=== PATIENT | female | born 1995 | race Caucasian/White ===

== ENCOUNTER 2017-02-06 12:26 | Outpatient (CLI) | payer MEDICAID ==
[~2017-02-06] VITALS: Ht 154.9 cm; Wt 78.6 kg
[2017-02-06 13:49] VITALS: Ht 154.9 cm; Wt 78.6 kg
[2017-02-06 13:50] VITALS: BP 109/58; PULSE 80; RESP 18
--- NOTE | 2017-02-06 15:57 | QN ---
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 G1 with an IUP at 22w 6d c/o decreased FM. No VB or leaking. PMHx: Large fibroid near the cervix. Migraines. PSHx: none. All: Sumatriptan. BP 109/58 T= 98.1 NST:baseline 140 bpm with accels to 155 bpm. No decels. No UC's. A: IUP at 22w 6d. Decreased movement. P: D/C home. F/U 02/[address] Chopra and 02/25 at her clinic. ALEXANDER LYONS MD February 06, 2017 15:57
--- NOTE | 2017-02-06 16:33 | TRIAGE ---
OB Triage Datetime Report Generated by CPN: 02/06/2017 16:32 Datetime: 02/06/2017 16:00 Stage of : OB Triage Datetime: 02/06/2017 15:35 EGA: 22.6 Datetime: 02/06/2017 14:00 Stage of : OB Triage Assessment Type: Triage Maternal Assessment Level of Consciousness: Fully Conscious DTR's/Clonus: DTRs 1+ Headache: Frontal (Annotations: 11/20) Blurred Vision: No Respiratory Effort: Unlabored Nausea/Vomiting: Denies RUQ Epigastric Pain: Denies Lower Extremities Edema: None Upper Extremities Edema: None Labor Evaluation Frequency: 0 Monitor Mode: External Resting Tone [place]: Relaxed Heart Rate FHR Baseline Rate: 150 Monitor Mode: External US FHR Baseline Changes: No Baseline Change Variability: Moderate 6-25 bpm Decelerations: None Comments: LOSS OF CONTACT (Annotations: EFM OFF FOR COMFORT) Pain Assessment Pain Scale: 7 Pain Presence: Constant Pain Type: Ache Pain Location: Abdomen; Back Pain Goal: 3 Pain Relief Measures: Comfort Measures Vaginal Exam Membrane Status: Intact Vaginal Bleeding: None Datetime: 02/06/2017 13:00 Labor Evaluation Frequency: 0 Monitor Mode: External Resting Tone [place]: Relaxed Heart Rate FHR Baseline Rate: 150 Monitor Mode: External US FHR Baseline Changes: No Baseline Change Variability: Moderate 6-25 bpm Decelerations: None Comments: APPROPRIATE FOR GA Pain Assessment Pain Scale: 7 Pain Presence: Constant Pain Type: Ache Pain Location: Abdomen; Back Pain Goal: 3 Pain Relief Measures: Comfort Measures Pain Assessment Comments: HEADACHE FRONTAL 11/20 Datetime: 02/06/2017 12:10 Time of Arrival: 02/06/2017 12:10 Arrived By: Ambulatory Arrived From: Home Chief Complaint: DECREASED FM Movement: Decreased Contractions: Denies/Absent Rupture of Membranes: Denies Vaginal Discharge: Denies Abdominal Trauma: Not Applicable Patient Complaints: Back Pain; Headache; Other Additional Patient Complaints: PT HAS CERVICAL? FIBROIDS AND WAS TOLD BY DR ENG THAT SHE WOULD HAVE TO HAVE A CAESAREAN DUE TO BLOCKAGE/ ADVISED TO GET ROBERTO OF HER F/U OF MONITORING OF FIBROIDS Time Provider Notified: 02/06/2017 13:00 Provider Notified: ELOY Initial Plan: EFM X2; CALL DR LYONS
== END 2017-02-06 16:30 | disposition home or self-care (01) ==
LOC: OBT 12:26 → L-D 12:26 → OBT 16:30
PROVIDERS: ATTEND Obstetrics & Gynecology
DX: O36.8120 Decreased fetal movements, second trimester, not applicable or unspecified (principal); Z3A.22 22 weeks gestation of pregnancy
CPT/HCPCS: G0463

== ENCOUNTER 2017-05-07 00:20 | Outpatient (CLI) | payer MEDICAID ==
[~2017-05-07] VITALS: Ht 154.9 cm; Wt 85.2 kg
[2017-05-07 00:58] VITALS: BP 126/78; PULSE 90; RESP 18
[2017-05-07] MEDS ORDERED: PRENAT PO (01:00)
--- NOTE | 2017-05-07 01:53 | RADRPT ---
PROCEDURE: US OB Limited for Estimated Weight. CLINICAL INDICATION: 21 years of age, female. Decreased movement TECHNIQUE: Multiple sonographic images of the pelvis were obtained. Transabdominal imaging only w as performed. The images were reviewed on a PACS workstation. Image quality: Satisfactory. COMPARISON: No prior studies are available for comparison. FINDINGS: [place] : Number of fetuses: 1 GENERAL EVALUATION: Cardiac activity: Present. FHR 150 bpm Presentation: Cephalic Placenta: Placenta site: Posterior. No evidence of placental previa. Placental grade 2 Cervix (transabdominal): Not evaluated GILBERTO: Not evaluated DATING: Clinical TASNEEM: June 06, 2017 EGA based on TASNEEM: 35 weeks 5 days BIOMETRY: BPD = 8.9 cm , 36 weeks 1 day HC = 31.6 cm , 35 weeks 3-day AC = 31.9 cm , 35 weeks 6 days FL = 7 cm , 35 weeks 5 days Composite sonographic age: 35 weeks 6 days plus or minus 3 weeks Estimated due date by ultrasound measurements: June 05, 2017 EFW 2765 grams, 52 percentile. ANATOMY: Not evaluated. IMPRESSION: 1. Single living fetus in cephalic presentation. 2. Clinical gestation age of 35 weeks 5 days and clinical TASNEEM June 06, 2017 are concordant with the composite sonographic age within 1 day. 3. Estimated weight is 2765 grams that is at the 52 percentile for gestational age. 4. Posterior grade 2 placenta. RPTAT: HCTS Physician Tobi Date Time Electronically viewed and signed by Physician Tobi on 05/07/2017 01:53 CS/
--- NOTE | 2017-05-07 01:57 | RADRPT ---
PROCEDURE: OB ultrasound for biophysical profile CLINICAL INDICATION: 21 years of age, female. Decreased movements TECHNIQUE: Multiple sonographic images of the pelvis were obtained. Transabdominal view of the gr avid uterus are available for review. The images were reviewed on a PACS workstation. COMPARISON: None available. FINDINGS: breathing movement = 2/2 tone = 2/2 motion = 2/2 Amniotic fluid = 2/2 GILBERTO = 9.2 cm Single live intrauterine in cephalic presentation. heart rate measures 137 bpm. Posterior placenta, grade 2. IMPRESSION: 1. Single living fetus in cephalic presentation. 2. Biophysical profile = 8/8. 3. Mild oligohydramnios with GILBERTO = 9.2 cm. This is between the 5th and 50th percentiles for gestati onal age of 35 weeks 5-days. 4. Posterior grade 2 placenta RPTAT: HCTS Physician Tobi Date Time Electronically viewed and signed by Physician Tobi on 05/07/2017 01:57 CS/
[2017-05-07 02:17] LABS: ADD UMIC NO; UR ASCORBIC ACID NEGATIVE (NEGATIVE); UR BILIRUBIN (Dip) NEGATIVE (NEGATIVE); UR BLOOD (Dip) NEGATIVE (NEGATIVE); UR CLARITY CLEAR (CLEAR); UR COLOR STRAW (YELLOW); UR GLUCOSE (Dip) NEGATIVE (NEGATIVE); UR KETONES (Dip) NEGATIVE (NEGATIVE); UR LEUKOCYTE ESTERASE (Dip) NEGATIVE Leu/ul (NEGATIVE); UR NITRITE (Dip) NEGATIVE (NEGATIVE); UR SPECIFIC GRAVITY (Dip) 1.006 (1.003-1.030); UR TOTAL PROTEIN (Dip) NEGATIVE (NEGATIVE); UR UROBILINOGEN (Dip) NEGATIVE (NEGATIVE)
[2017-05-07 04:43] LABS: CANNABINOIDS Negative (NEGATIVE)
[2017-05-07 04:45] LABS: BARBITURATES Negative (NEGATIVE); BENZODIAZEPINES Negative (NEGATIVE); COCAINE Negative (NEGATIVE); OPIATES Negative (NEGATIVE)
--- NOTE | 2017-05-07 04:51 | PN ---
Triage Information Date/Time May 07, 2017 Reason for visit: DFM Weeks of Gestation 35w 5d /Para 2/0 Diabetes: none Hypertention: none Additional information No bleeding or leaking. PMHx: migraines. PSHx: none. All: Imitrex. Objective Vital Signs Date Time Temp Pulse Resp B/P Pulse Ox O2 Delivery O2 Flow Rate FiO2 05/07/17 00:58 97.9 90 18 126/78 Room Air Heart Rate: 130's Heart Rate Comments With accels to 170 bpm. No decels. Contractions: None Exam Deferred. Results/Medications Results 24 hrs Laboratory Tests Test 05/07/17 00:20 Urine Color STRAW Urine Clarity CLEAR Urine pH 7.0 Urine Specific [place] 1.006 Urine Ketones NEGATIVE Urine Nitrite NEGATIVE Urine Bilirubin NEGATIVE Urine Urobilinogen NEGATIVE Urine Leukocyte Esterase NEGATIVE Urine Hemoglobin NEGATIVE Urine Glucose NEGATIVE Urine Total Protein NEGATIVE Urine Opiates Screen Negative Urine Barbiturates Negative Urine Amphetamines Screen Negative Urine Benzodiazepines Screen Negative Urine Cocaine Screen Negative Urine Cannabinoids Negative Imaging Results EFW 2765 grams. BPP 8/8. GILBERTO 9.2 cm. VTX. Disposition: Discharge Assessment/Plan A: IUP at 35w 5d. Decreased movement. P: BPP and GILBERTO wnl. EFW S=D. After p.o. hydration pt now feels the baby moving. D/C home with kick count instructions. ALEXANDER LYONS MD May 07, 2017 04:51
--- NOTE | 2017-05-07 05:03 | TRIAGE ---
OB Triage Datetime Report Generated by CPN: 05/07/2017 05:02 Datetime: 05/07/2017 02:20 Stage of : OB Triage Monitor Mode: External Pattern: Normal: <= 5 Contractions in 10 Minutes Resting Tone [place]: Relaxed Heart Rate FHR Baseline Rate: 140 Monitor Mode: External US FHR Baseline Changes: No Baseline Change Variability: Moderate 6-25 bpm Accelerations: 15X15 Decelerations: None Category: Category I Datetime: 05/07/2017 01:32 Stage of : OB Triage Monitor Mode: External Resting Tone [place]: Relaxed Heart Rate FHR Baseline Rate: 140 Monitor Mode: External US Variability: Moderate 6-25 bpm Accelerations: 15X15 Decelerations: None Category: Category I Pain Assessment Pain Scale: 0 Pain Presence: None/Denies Pain Type: N/A Datetime: 05/07/2017 00:56 Time of Arrival: 05/07/2017 00:20 EGA: 35.5 Arrived By: Ambulatory Arrived From: Home Chief Complaint: c/o dfm Movement: Decreased Contractions: Denies/Absent Rupture of Membranes: Denies Vaginal Discharge: Denies Recent Sexual Intercouse: Denies Abdominal Trauma: Not Applicable Patient Complaints: None Additional Patient Complaints: Pt states smokes marijuana, last time 1 month ago Time Provider Notified: 05/07/2017 01:30 Provider Notified: Dr Gardner Initial Plan: EFM Datetime: 05/07/2017 00:29 Stage of : OB Triage Maternal Assessment Level of Consciousness: Fully Conscious Headache: Denies Blurred Vision: No Respiratory Effort: Unlabored Nausea/Vomiting: Denies RUQ Epigastric Pain: Denies Facial Edema: None Labor Evaluation Frequency: placed Monitor Mode: External Resting Tone [place]: Relaxed Heart Rate FHR Baseline Rate: 160 Monitor Mode: External US Pain Assessment Pain Scale: 0 Pain Presence: None/Denies Pain Type: N/A Datetime: 02/06/2017 15:35 EGA: 22.6
== END 2017-05-07 04:44 | disposition home or self-care (01) ==
LOC: L-D 00:20 → OBT 00:20
PROVIDERS: ATTEND Obstetrics & Gynecology
DX: O36.8130 Decreased fetal movements, third trimester, not applicable or unspecified (principal); Z3A.35 35 weeks gestation of pregnancy
CPT/HCPCS: 76815; 76818; 80307; 81003; Z7500; G0463

== ENCOUNTER 2017-05-27 14:30 | Outpatient (CLI) | payer MEDICAID ==
[~2017-05-27] VITALS: Ht 154.9 cm; Wt 87.5 kg
[~2017-05-27 14:30] MED LIST: PRENAT PO
[2017-05-27] MEDS ORDERED: FERR236T PO (15:06)
[2017-05-27] MEDS ORDERED: FOL8 PO (15:06)
[2017-05-27 15:08] VITALS: BP 120/70; PULSE 77; RESP 18
--- NOTE | 2017-05-27 15:49 | RADRPT ---
PROCEDURE: US OB biophysical profile. CLINICAL INDICATION: decreased movements, labor TECHNIQUE: Multiple sonographic images of the pelvis were obtained. The images were reviewed on a PACS workstation. COMPARISON: US PELVIS 05/07/2017 FINDINGS: There is a single viable intrauterine gestation. Cardiac activity is present with 161 beats per min [place]. There is a vertex presentation. The placenta is fundal left lateral. There is no evidence of placental abruption. There is a normal amount of amniotic fluid with an GILBERTO = 13.3 cm. Biophysical profile: movement 2/2 tone 2/2. breathing 2/2 GILBERTO 2/2 Total 04/20 RPTAT: AA . IMPRESSION: Normal biophysical profile. . .Jori Salas MD, Date Time Electronically viewed and signed by .Jori Salas MD, MD on 05/27/2017 15:49 .S/
--- NOTE | 2017-05-27 15:49 | RADRPT ---
PROCEDURE: Obstetrical ultrasound. CLINICAL INDICATION: , evaluation. Pelvic pain. Hypertension TECHNIQUE: Transabdominal sonographic images of the uterus obtained after first trimester , greater than 14 weeks gestation. Single intrauterine gestation present. COMPARISON: 05/07/2017 FINDINGS: Single intrauterine gestation. There is a cephalic presentation. Measurements were made in order to determine age. The results are as follows: BPD = 38 weeks 5 day(s) HC = 38 weeks 3 day(s) AC = 39 weeks 5 day(s) FL = 39 weeks 2 day(s) GILBERTO = not measured. Heart rate = 129 beats per minute The placenta is posterior. There is no evidence for an abruption or placenta previa. Ovaries are not visualized. IMPRESSION: Single intrauterine gestation of approximately 39 weeks 0 days by ultrasound criteria. [place] estimated weight = 3761 g; 83 percentile for gestational age of 38 weeks 4 days. RPTAT: AADD .Alan Wilburn MD, Date Time Electronically viewed and signed by .Alan Wilburn MD, MD on 05/27/2017 15:49 .B/
[2017-05-27 15:50] LABS: BASOPHILS % 0.3 % (0.0-2.0); EOSINOPHILS # 0.1 10^3/ul (0.0-0.5); EOSINOPHILS % 1.2 % (0.0-7.0); HEMATOCRIT 34.4 % (37.0-47.0); HEMOGLOBIN 11.6 g/dl (12.0-16.0); LYMPHOCYTES % 17.8 % (15.0-51.0); MEAN CORPUSCULAR HEMOGLOBIN 28.5 pg (29.0-33.0); MEAN CORPUSCULAR HGB CONC 33.7 g/dl (32.0-37.0); MEAN CORPUSCULAR VOLUME 84.5 fl (82.0-101.0); MEAN PLATELET VOLUME 11.5 fl (7.4-10.4); MONOCYTE # 0.6 10^3/ul (0.3-0.9); NEUTROPHIL # 8.4 10^3/ul (1.6-7.5); NEUTROPHILS % 75.2 % (39.0-77.0); PLATELET COUNT 205 10^3/UL (140-415); RED BLOOD COUNT 4.07 10^6/ul (4.20-5.40); RED CELL DISTRIBUTION WIDTH 13.8 % (11.5-14.5); WHITE BLOOD COUNT 11.1 10^3/ul (4.8-10.8)
[2017-05-27 16:20] LABS: INR 0.94; PROTIME 12.6 Sec (12.2-14.2)
[2017-05-27 16:21] LABS: PARTIAL THROMBOPLASTIN TIME 23.8 Sec (25.0-35.0)
[2017-05-27 16:22] LABS: ALBUMIN 3.2 g/dl (3.3-4.9); ALBUMIN/GLOBULIN RATIO 1.14; BILIRUBIN,INDIRECT 0.2 mg/dl (0-1.1); BILIRUBIN,TOTAL 0.2 mg/dl (0.2-1.3); CALCIUM 9.2 mg/dl (8.4-10.2); CREATININE 0.5 mg/dl (0.44-1.00); POTASSIUM 3.9 mmol/L (3.5-5.1); URIC ACID 3.9 mg/dl (3.1-7.9)
[2017-05-27 16:37] LABS: ADD UMIC NO; UR ASCORBIC ACID NEGATIVE (NEGATIVE); UR BILIRUBIN (Dip) NEGATIVE (NEGATIVE); UR BLOOD (Dip) NEGATIVE (NEGATIVE); UR CLARITY CLEAR (CLEAR); UR COLOR YELLOW (YELLOW); UR GLUCOSE (Dip) NEGATIVE (NEGATIVE); UR KETONES (Dip) NEGATIVE (NEGATIVE); UR LEUKOCYTE ESTERASE (Dip) NEGATIVE Leu/ul (NEGATIVE); UR NITRITE (Dip) NEGATIVE (NEGATIVE); UR SPECIFIC GRAVITY (Dip) 1.012 (1.003-1.030); UR TOTAL PROTEIN (Dip) NEGATIVE (NEGATIVE); UR UROBILINOGEN (Dip) 1+ mg/dL (NEGATIVE)
--- NOTE | 2017-05-27 18:40 | QN ---
Documentation Comment iup 38 weeks with some blurred vision vss exam wnl labs wnl ua neg a/p iup 38 weeks false labor dc home CHANTELL STERN MD May 27, 2017 18:40
--- NOTE | 2017-05-27 19:07 | TRIAGE ---
OB Triage Datetime Report Generated by CPN: 05/27/2017 19:07 Datetime: 05/27/2017 17:52 Labor Evaluation Frequency: 0 Monitor Mode: External Pattern: Normal: <= 5 Contractions in 10 Minutes Resting Tone [place]: Relaxed Heart Rate FHR Baseline Rate: 135 Monitor Mode: External US FHR Baseline Changes: No Baseline Change Variability: Moderate 6-25 bpm Accelerations: 15X15 Decelerations: None Datetime: 05/27/2017 17:00 Labor Evaluation Frequency: 0 Monitor Mode: External Pattern: Normal: <= 5 Contractions in 10 Minutes Resting Tone [place]: Relaxed Heart Rate FHR Baseline Rate: 130 Monitor Mode: External US FHR Baseline Changes: No Baseline Change Variability: Moderate 6-25 bpm Accelerations: 15X15 Decelerations: Variable Datetime: 05/27/2017 16:00 Labor Evaluation Frequency: 0 Monitor Mode: External Pattern: Normal: <= 5 Contractions in 10 Minutes Resting Tone [place]: Relaxed Heart Rate FHR Baseline Rate: 135 Monitor Mode: External US FHR Baseline Changes: No Baseline Change Variability: Moderate 6-25 bpm Accelerations: 15X15 Decelerations: Variable Datetime: 05/27/2017 15:12 Stage of : OB Triage Assessment Type: Triage Maternal Assessment Level of Consciousness: Fully Conscious Headache: Denies Blurred Vision: No Respiratory Effort: Unlabored; Regular Rhythm; Equal Expansion Breath Sounds, Left: Clear and Equal Breath Sounds, Right: Clear and Equal Nausea/Vomiting: Denies RUQ Epigastric Pain: Denies Lower Extremities Edema: None Degree: None Upper Extremities Edema: None Degree: None Facial Edema: None Temperature Route: Oral Fall Risk Assessment History of Falling: (0) No Secondary Diagnosis: (0) No Ambulatory Aid: (0) Bedrest/Nurse Assist IV Therapy: (0) No Gait: (0) Normal/Bedrest/Immobile Mental Status: (0) Oriented to Own Ability Fall Score: 0 Fall Risk Score Definition: No Risk: No action required Pain Assessment Pain Scale: 0 Pain Presence: None/Denies Pain Type: N/A Datetime: 05/27/2017 15:10 Time of Arrival: 05/27/2017 14:20 EGA: 38.4 Arrived By: Ambulatory Arrived From: Dr. Nicole Chief Complaint: ELEV BP, BLURRY VISION A COUPLE OF TIMES FOR A FEW SECONDS (BUT NONE TODAY); VAGI NAL SPOTTING YESTERDAY BETWEEN [phone] (PT REPORTS SEXUAL INTERCOURSE IN THE EVENING OF 05/25) Movement: Present Contractions: Occasional Rupture of Membranes: Denies Vaginal Bleeding: None Vaginal Discharge: Denies Recent Sexual Intercouse: Denies Abdominal Trauma: Not Applicable Patient Complaints: Other Time Provider Notified: 05/27/2017 15:19 Provider Notified: DR. ISRAEL Initial Plan: EFM x2, BP MONITORING, BPP, EFW, PIH PANEL Datetime: 05/07/2017 04:40 Stage of : OB Triage Datetime: 05/07/2017 04:12 Stage of : OB Triage Datetime: 05/07/2017 03:37 Comments: EFM off. Pt sleeping Datetime: 05/07/2017 03:26 Heart Rate FHR Baseline Rate: 135 Monitor Mode: External US FHR Baseline Changes: No Baseline Change Variability: Moderate 6-25 bpm Accelerations: 15X15 Decelerations: None Category: Category I Pain Assessment Pain Scale: 0 Pain Presence: None/Denies Datetime: 05/07/2017 00:56 EGA: 35.5 Datetime: 02/06/2017 15:35 EGA: 22.6
== END 2017-05-27 18:30 | disposition home or self-care (01) ==
LOC: L-D 14:30 → OBT 14:30
PROVIDERS: ATTEND Obstetrics & Gynecology
DX: O47.1 False labor at or after 37 completed weeks of gestation (principal); O26.893 Other specified pregnancy related conditions, third trimester; H53.8 Other visual disturbances; Z3A.38 38 weeks gestation of pregnancy
CPT/HCPCS: 76815; 76818; 80053; 81003; 84560; 85025; 85384; 85610; 85730; Z7500; G0463

== ENCOUNTER 2017-05-30 15:45 | Inpatient (IN) | payer MEDICAID ==
[~2017-05-30] VITALS: Ht 154.9 cm; Wt 86.5 kg
[~2017-05-30 15:45] MED LIST changes: +BEN25 PO; +FERR236T PO; +FOL8 PO; +HYDR-3011 PO; +PRED20TA PO
[2017-05-30 15:52] VITALS: BP 132/74; PULSE 97; RESP 19; Ht 154.9 cm; Wt 86.5 kg
--- NOTE | 2017-05-30 16:06 | TRIAGE ---
OB Triage Datetime Report Generated by CPN: 05/30/2017 16:06 Datetime: 05/30/2017 15:51 Assessment Type: Triage Maternal Assessment Level of Consciousness: Fully Conscious DTR's/Clonus: DTRs 2+; No Clonus Headache: Denies Blurred Vision: No Respiratory Effort: Unlabored; Regular Rhythm; Equal Expansion Breath Sounds, Left: Clear and Equal Breath Sounds, Right: Clear and Equal Nausea/Vomiting: Denies RUQ Epigastric Pain: Denies Lower Extremities Edema: None Degree: None Upper Extremities Edema: None Degree: None Facial Edema: None Fall Risk Assessment History of Falling: (0) No Secondary Diagnosis: (0) No Ambulatory Aid: (0) Bedrest/Nurse Assist IV Therapy: (0) No Gait: (0) Normal/Bedrest/Immobile Mental Status: (0) Oriented to Own Ability Fall Score: 0 Fall Risk Score Definition: No Risk: No action required Datetime: 05/30/2017 15:40 Time of Arrival: 05/30/2017 15:40 EGA: 39.0 Arrived By: Wheelchair Arrived From: Home Chief Complaint: PT CAME IN C/O SROM SINCE 11:30 THIS AM. DENIES ANY BLEEDING AND STATES + M OVEMENT Movement: Present Contractions: Denies/Absent Rupture of Membranes: Ruptured Vaginal Discharge: Denies Recent Sexual Intercouse: Denies Abdominal Trauma: Not Applicable Additional Patient Complaints: NONE Time Provider Notified: 05/30/2017 16:00 Provider Notified: ESHAGHIAN Initial Plan: MONITOR, VE, NITRAZINE TEST Datetime: 05/27/2017 15:12 Fall Score: 0 Fall Risk Score Definition: No Risk: No action required Datetime: 05/27/2017 15:10 EGA: 38.4 Datetime: 05/07/2017 00:56 EGA: 35.5 Datetime: 02/06/2017 15:35 EGA: 22.6
--- NOTE | 2017-05-30 17:06 | RADRPT ---
PROCEDURE: US OB. CLINICAL INDICATION: Size and dates , labor pain TECHNIQUE: Multiple sonographic images of the pelvis and gravid uterus were obtained. The images were reviewed on a PACS workstation. COMPARISON: 05/27/2017 FINDINGS: There is a single viable intrauterine gestation. Cardiac activity is present with 163 beats per min [place]. There is a vertex presentation. The placenta is fundal. There is no evidence for an abruption or placenta previa. Measurements were made in order to determine age. The results are as follows: BPD =9.7 cm HC =33.5 cm AC =35.6 cm FL =7.6 cm Estimated gestational age of approximately 39 weeks and 0 days based on ultrasound measurements. Clinical age: 39 weeks and 0 days. The estimated date of delivery is 06/06/17, based on ultrasound measurements. The EFW = 3715 g, 74%, based on LMP age. RPTAT: AA IMPRESSION: Single viable intrauterine gestation of approximately 39 weeks and 0 days based on ultrasound measu rements. .Jori Salas MD, Date Time Electronically viewed and signed by .Jori Salas MD, on 05/30/2017 17:06 .S/
[2017-05-30] MEDS ORDERED: AMPICILLIN 2 GM/NS (PMX) 100 ML ONE (17:50)
[2017-05-30] MEDS ORDERED: OXYTOCIN 30 UNITS/LR 500 ML IV PRN (18:00)
[2017-05-30] MEDS ORDERED: AMPICILLIN 2 GM/NS (PMX) 100 ML IV ONE (18:00)
[2017-05-30] MEDS ORDERED: BUTORPHANOL 2 MG INJ IV PRN (18:00)
[2017-05-30] MEDS ORDERED: METHYLERGONOVINE 0.2 MG INJ IM PRN (18:00)
[2017-05-30] MEDS ORDERED: MISOPROSTOL 200 MCG TAB PR PRN (18:00)
[2017-05-30] MEDS ORDERED: HYDROCODONE/APAP (5/325) TAB PO PRN (18:00)
[2017-05-30] MEDS ORDERED: LIDOCAINE 1% (MPF) 30 ML INJ INJ PRN (18:00)
[2017-05-30] MEDS ORDERED: OXYTOCIN 30 UNITS/LR 500 ML IV SCH ×2 (18:00)
[2017-05-30] MEDS ORDERED: CARBOPROST 250 MCG INJ IM PRN (18:00)
[2017-05-30] MEDS: LACTATED RINGER'S 1,000 ML IV SCH (18:02)
[2017-05-30 18:33] LABS: BASOPHIL # 0.1 10^3/ul (0.0-0.1); BASOPHILS % 0.4 % (0.0-2.0); EOSINOPHILS # 0.3 10^3/ul (0.0-0.5); EOSINOPHILS % 2.1 % (0.0-7.0); HEMATOCRIT 35.6 % (37.0-47.0); HEMOGLOBIN 12.1 g/dl (12.0-16.0); LYMPHOCYTES # 1.6 10^3/ul (0.8-2.9); LYMPHOCYTES % 11.9 % (15.0-51.0); MEAN CORPUSCULAR HEMOGLOBIN 28.6 pg (29.0-33.0); MEAN CORPUSCULAR VOLUME 84.2 fl (82.0-101.0); MEAN PLATELET VOLUME 11.6 fl (7.4-10.4); MONOCYTE # 0.6 10^3/ul (0.3-0.9); MONOCYTES % 4.5 % (0.0-11.0); NEUTROPHIL # 10.8 10^3/ul (1.6-7.5); NEUTROPHILS % 80.6 % (39.0-77.0); PLATELET COUNT 214 10^3/UL (140-415); RED BLOOD COUNT 4.23 10^6/ul (4.20-5.40); RED CELL DISTRIBUTION WIDTH 13.7 % (11.5-14.5); WHITE BLOOD COUNT 13.4 10^3/ul (4.8-10.8)
[2017-05-30 18:51] LABS: INR 0.94; PROTIME 12.6 Sec (12.2-14.2)
[2017-05-30 18:52] LABS: PARTIAL THROMBOPLASTIN TIME 24.7 Sec (25.0-35.0)
[2017-05-30] MEDS ORDERED: LACTATED RINGER'S 1,000 ML IV PRN (20:00)
[2017-05-30] MEDS ORDERED: FENTAnyl 2MCG/ML-ROPIV 0.2% 100 ML ONE (21:33)
[2017-05-30 21:54] LABS: BARBITURATES Negative (NEGATIVE); BENZODIAZEPINES Negative (NEGATIVE); CANNABINOIDS Positive (NEGATIVE); COCAINE Negative (NEGATIVE); OPIATES Negative (NEGATIVE)
[2017-05-30] MEDS: AMPICILLIN 1 GM/NS (PMX) 50 ML IV SCH (21:56)
[2017-05-30] MEDS ORDERED: NALOXONE (0.4 MG/ML) INJ IV PRN (22:00)
[2017-05-30] MEDS: FENTAnyl 2MCG/ML-ROPIV 0.2% 100 ML BAG EPI SCH (22:15)
[2017-05-31] MEDS: LACTATED RINGER'S 1,000 ML IV SCH (02:10)
[2017-05-31] MEDS: AMPICILLIN 1 GM/NS (PMX) 50 ML IV SCH ×3 (02:23→08:48)
[2017-05-31] MEDS ORDERED: ONDANSETRON 4 MG INJ ONE (02:39)
[2017-05-31] MEDS: ONDANSETRON 4 MG INJ IV PRN ×2 (02:45→06:19)
[2017-05-31] MEDS: FENTAnyl 2MCG/ML-ROPIV 0.2% 100 ML BAG EPI SCH ×2 (04:53→09:20)
[2017-05-31] MEDS ORDERED: DEXTROSE 5%-LR 1,000 ML IV SCH (07:40)
[2017-05-31] MEDS ORDERED: MINERAL OIL LIGHT 10 ML VIAL TOP ONE (08:00)
[2017-05-31] MEDS ORDERED: FENTAnyl 50 MCG/ML VIAL ONE (10:07)
[2017-05-31] MEDS: OXYTOCIN 30 UNITS/LR 500 ML IV SCH ×4 (10:20→15:48)
[2017-05-31] MEDS ORDERED: FENTAnyl 50 MCG/ML VIAL IV ONE (10:30)
--- NOTE | 2017-05-31 10:38 | LDN ---
Date/Time of Note Date/Time of Note DATE: 05/31/17 TIME: 10:37 Delivery Summary Placenta Delivered: Spontaneously Meconium: none Laceration repair: primary vaginal tears with 2-0 chromic Anesthesia type: Epidural Sponge & Needle done & correct: Yes All needle counts correct: Yes Any foreign bodies felt in the: No Problems: Infant Delivery Information Sex Sex: male Suctioning Nose & mouth suctioned at gavino: Yes Umbilical Cord Umbilical cord with: 3 Vessels Cord presentations: nuchal cord Nuchal cord present X: 1 Cord Blood was obtained: Yes CHANTELL STERN MD May 31, 2017 10:38
[2017-05-31] MEDS ORDERED: LACTATED RINGER'S 1,000 ML IV* SCH (11:48)
[2017-05-31] MEDS ORDERED: METHYLERGONOVINE 0.2 MG INJ IM PRN (12:00)
[2017-05-31] MEDS: IBUPROFEN 600 MG TAB PO SCH ×2 (12:00→17:38)
[2017-05-31] MEDS ORDERED: WITCH HAZEL/GLYCERIN PAD PR PRN (12:00)
[2017-05-31] MEDS ORDERED: CARBOPROST 250 MCG INJ IM PRN (12:00)
[2017-05-31] MEDS ORDERED: DIBUCAINE 1% 30 GM OINT PR PRN (12:00)
[2017-05-31] MEDS ORDERED: OXYTOCIN 30 UNITS/LR 500 ML IV PRN (12:00)
[2017-05-31] MEDS ORDERED: BENZOCAINE 20% 56 ML SPRAY TOP PRN (12:00)
[2017-05-31] MEDS ORDERED: SENNA/DOCUSATE NA (8.6MG/50MG) TAB PO PRN (12:00)
[2017-05-31] MEDS ORDERED: MISOPROSTOL 200 MCG TAB PR PRN (12:00)
[2017-05-31 12:05] VITALS: BP 120/67; PULSE 65; RESP 18
[2017-05-31] MEDS: LANOLIN 7 GM TUBE TOP PRN (14:21)
[2017-05-31] MEDS: HYDROCODONE/APAP (5/325) TAB PO PRN ×2 (15:53→21:11)
[2017-05-31 16:00] VITALS: BP 124/62; PULSE 65; RESP 18
[2017-05-31 19:45] VITALS: BP 128/89; PULSE 101; RESP 18
[2017-05-31] MEDS: SENNA/DOCUSATE NA (8.6MG/50MG) TAB PO SCH (20:59)
[2017-06-01 00:15] VITALS: BP 118/82; PULSE 98; RESP 18
[2017-06-01] MEDS: IBUPROFEN 600 MG TAB PO SCH ×4 (02:29→17:57)
[2017-06-01 04:00] VITALS: BP 123/70; PULSE 70; RESP 18
[2017-06-01 08:15] VITALS: BP 122/66; PULSE 67; RESP 18
[2017-06-01] MEDS: HYDROCODONE/APAP (5/325) TAB PO PRN (09:58)
[2017-06-01] MEDS: PRENATAL VITAMIN PO SCH (09:59)
[2017-06-01] MEDS: FOLIC ACID 0.4 MG TAB PO SCH (09:59)
[2017-06-01] MEDS: SENNA/DOCUSATE NA (8.6MG/50MG) TAB PO SCH ×2 (09:59→21:00)
[2017-06-01 11:24] LABS: BASOPHILS % 0.3 % (0.0-2.0); EOSINOPHILS # 0.2 10^3/ul (0.0-0.5); EOSINOPHILS % 1.9 % (0.0-7.0); HEMATOCRIT 30.7 % (37.0-47.0); HEMOGLOBIN 10.2 g/dl (12.0-16.0); LYMPHOCYTES # 2.3 10^3/ul (0.8-2.9); LYMPHOCYTES % 17.9 % (15.0-51.0); MEAN CORPUSCULAR HEMOGLOBIN 28.1 pg (29.0-33.0); MEAN CORPUSCULAR HGB CONC 33.2 g/dl (32.0-37.0); MEAN CORPUSCULAR VOLUME 84.6 fl (82.0-101.0); MEAN PLATELET VOLUME 11.8 fl (7.4-10.4); MONOCYTE # 0.6 10^3/ul (0.3-0.9); MONOCYTES % 4.8 % (0.0-11.0); NEUTROPHIL # 9.7 10^3/ul (1.6-7.5); NEUTROPHILS % 74.5 % (39.0-77.0); PLATELET COUNT 195 10^3/UL (140-415); RED BLOOD COUNT 3.63 10^6/ul (4.20-5.40)
[2017-06-01 14:27] LABS: RUBELLA ANTIBODY - IGG 2.06 index
[2017-06-01 16:00] VITALS: BP 128/64; PULSE 77; RESP 16
--- NOTE | 2017-06-01 18:14 | QN ---
Documentation Comment Progress note day 1 Patient was seen and evaluated awake alert oriented 3 positive ambulation tired diet positive flatulence positive bowel movement denies any headache nausea vomiting shortness of breath or visual changes Vital signs stable Abdomen soft nontender uterine fundus below umbilicus firm Extremity negative edema no calf tenderness Assessment status post vaginal delivery day 1 stable afebrile Plan discharge home tomorrow Iron supplement ARON ISRAEL MD Jun 01, 2017 18:14
--- NOTE | 2017-06-01 18:15 | PD.PPDC ---
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
--- NOTE | 2017-06-01 18:18 | DS ---
Date/Time of Note Date/Time of Note DATE: 06/01/17 TIME: 18:18 Obstetrical Discharge Record Final Diagnosis Final Diagnosis: Term delivered Vaginal Delivery Obstetrical Delivery: Spontaneous Complications Augmentation: No Induction: No Condition on Discharge Physical Assessment Voiding: Yes Bowel Movement: Yes Breast: Soft, non-tender, Filling Fundus: Firm Calf Tenderness: No Patient Condition: Good ARON ISRAEL MD Jun 01, 2017 18:18
[2017-06-01 20:00] VITALS: BP 126/78; PULSE 69; RESP 18
[2017-06-02] MEDS: IBUPROFEN 600 MG TAB PO SCH ×3 (00:14→11:49)
[2017-06-02] MEDS: LANOLIN 7 GM TUBE TOP PRN (01:30)
[2017-06-02 04:16] VITALS: BP 129/68; PULSE 75; RESP 18
[2017-06-02 08:00] VITALS: BP 115/62; PULSE 79; RESP 18
[2017-06-02] MEDS: SENNA/DOCUSATE NA (8.6MG/50MG) TAB PO SCH (09:00)
[2017-06-02] MEDS: PRENATAL VITAMIN PO SCH (10:36)
[2017-06-02] MEDS: FOLIC ACID 0.4 MG TAB PO SCH (10:36)
== END 2017-06-02 14:15 | disposition home or self-care (01) | DRG 775 ==
LOC: L-D 15:45 → OBT 15:45 → L-D 16:00 → PP1 05-31 11:57
PROVIDERS: ADMIT Obstetrics & Gynecology; ATTEND Obstetrics & Gynecology
PROC: 10E0XZZ Delivery of Products of Conception, External Approach (ICD-10-PCS; principal; 2017-05-30)
PROC: 0UQGXZZ Repair Vagina, External Approach (ICD-10-PCS; 2017-05-30)
PROC: 3E033VJ Introduction of Other Hormone into Peripheral Vein, Percutaneous Approach (ICD-10-PCS; 2017-05-30)
DX: O71.4 Obstetric high vaginal laceration alone (principal); O69.81X0 Labor and delivery complicated by cord around neck, without compression, not applicable or unspecified; Z3A.38 38 weeks gestation of pregnancy; Z37.0 Single live birth
CPT/HCPCS: 62319; 76815; 80307; 85025; 85610; 85730; 86592; 86703; 86762; 86900; 86901; 87340; 99464; G0463; J0290; J2405; J2590; J3010; J7120; J7121

== ENCOUNTER 2018-08-24 11:58 | Emergency (ER) | END 2018-08-24 13:39 | disposition home or self-care (01) ==